=== PATIENT | male | born 1960 | race Caucasian/White ===

== ENCOUNTER 2016-12-12 07:55 | Emergency (ER) | payer MEDICAID ==
[~2016-12-12] VITALS: Ht 167.6 cm; Wt 81.6 kg
[2016-12-12 08:22] VITALS: BP 117/76
== END 2016-12-12 08:40 | disposition home or self-care (01) ==
LOC: ER 07:55
DX: J40 Bronchitis, not specified as acute or chronic (principal); R06.2 Wheezing; I48.91 Unspecified atrial fibrillation; E78.5 Hyperlipidemia, unspecified; I50.9 Heart failure, unspecified; F17.210 Nicotine dependence, cigarettes, uncomplicated

== ENCOUNTER 2017-02-02 07:14 | Emergency (ER) | payer MEDICAID ==
[~2017-02-02] VITALS: Ht 167.6 cm; Wt 81.2 kg
[2017-02-02 08:19] LABS: Urine RBC None Seen /hpf (0 - 3)
[2017-02-02 08:35] LABS: Basophils # (auto) 0 uL; Basophils % (auto) 0.3 % (0.0-2.0); Eosinophils # (auto) 0.2 uL; Eosinophils % (auto) 3.1 % (0.0-7.0); Hematocrit 40.2 % (41.0-53.0); Hemoglobin 13.8 g/dL (13.5-17.5); Lymphocytes # (auto) 0.9 uL; Lymphocytes % (auto) 17.1 % (10.0-50.0); Mean Corpuscular Hemoglobin 30.4 pg (28.0-32.0); Mean Corpuscular Hgb Conc. 34.4 g/dL (32.0-36.0); Mean Corpuscular Volume 88.3 fL (80.0-100.0); Mean Platelet Volume 8.1 fL (7.4-10.4); Monocytes # (auto) 0.5 uL; Neutrophils # (auto) 3.5 uL; Neutrophils % (auto) 69.5 % (37.0-80.0); Platelet Count (auto) 213 10^3/uL (140-450); Red Cell Distribution Width 14.2 % (11.6-16.0)
[2017-02-02 08:40] LABS: Urine Bilirubin Negative (Negative); Urine Blood Negative /uL (Negative); Urine Color Yellow (Yellow); Urine Glucose Normal (Normal); Urine Hyaline Cast FEW /lpf (0 - 2); Urine Ketone Negative (Negative); Urine Nitrite Negative (Negative); Urine Squamous Epithelial Cell FEW /hpf (<5); Urine Urobilinogen Normal (Negative); Urine pH 5.5 (5.0-8.0)
[2017-02-02 09:01] LABS: Albumin 3.7 g/dL (3.4-5.0); Alkaline Phosphatase 81 U/L (45-117); Anion Gap 7 (5-15); Aspartate Aminotransferase 33 U/L (15-37); BUN/Creatinine Ratio 22.5; Bilirubin, Total 0.5 mg/dL (0.2-1.0); Blood Urea Nitrogen 20 mg/dL (7-18); Calcium 8.8 mg/dL (8.5-10.1); Carbon Dioxide 26 mmol/L (21-32); Chloride 104 mmol/L (98-107); GFR African American 115 mL/min; GFR Non-African American 95 mL/min; Glucose 90 mg/dL (74-106); Magnesium 2.2 mg/dL (1.6-2.6); Potassium 3.7 mmol/L (3.5-5.1); Sodium 137 mmol/L (136-145); Total Protein 7.9 g/dL (6.4-8.2)
[2017-02-02] MEDS ORDERED: IPRATROPIUM BROM 0.5 MG/2.5ML INH SOL NEB ONE (09:15)
[2017-02-02] MEDS ORDERED: AZITHROMYCIN 500MG/D5W 250ML 250 ML IV ONE (09:15)
[2017-02-02] MEDS ORDERED: ALBUTEROL SULF 2.5 MG/0.5ML(0.5%) NEB SOLN NEB ONE (09:15)
[2017-02-02] MEDS ORDERED: DEXAMETHASONE SOD PHOS 4 MG/1ML SDV INJ IV ONE (09:15)
[2017-02-02 09:57] VITALS: BP 122/75
== END 2017-02-02 11:34 | disposition home or self-care (01) ==
LOC: ER 07:14
DX: J45.901 Unspecified asthma with (acute) exacerbation (principal); E78.5 Hyperlipidemia, unspecified; F17.210 Nicotine dependence, cigarettes, uncomplicated; Z90.49 Acquired absence of other specified parts of digestive tract
CPT/HCPCS: 36415; 71020; 80053; 81001; 83735; 84484; 85025; 93005; 94640; 94761; 96365; 96366; 96375; 99285; J0456; J1100

== ENCOUNTER 2017-03-24 05:42 | Emergency (ER) | payer MEDICAID ==
[~2017-03-24] VITALS: Ht 167.6 cm; Wt 83.9 kg
[2017-03-24 07:45] LABS: Urine RBC None Seen /hpf (0 - 3)
[2017-03-24 07:52] LABS: Basophils # (auto) 0 uL; Basophils % (auto) 0.4 % (0.0-2.0); CONDITION Y; Eosinophils # (auto) 0.2 uL; Eosinophils % (auto) 2.7 % (0.0-7.0); Hematocrit 40.1 % (41.0-53.0); Hemoglobin 13.9 g/dL (13.5-17.5); Lymphocytes # (auto) 1.7 uL; Lymphocytes % (auto) 26.1 % (10.0-50.0); Mean Corpuscular Hemoglobin 30.6 pg (28.0-32.0); Mean Corpuscular Hgb Conc. 34.6 g/dL (32.0-36.0); Mean Corpuscular Volume 88.7 fL (80.0-100.0); Mean Platelet Volume 8.1 fL (7.4-10.4); Monocytes # (auto) 0.5 uL; Monocytes % (auto) 8.2 % (0.0-12.0); Neutrophils # (auto) 4.1 uL; Neutrophils % (auto) 62.6 % (37.0-80.0); Platelet Count (auto) 232 10^3/uL (140-450); White Blood Cell 6.5 10^3/uL (4.4-10.8)
[2017-03-24 07:58] LABS: Urine Bilirubin Negative (Negative); Urine Blood Negative /uL (Negative); Urine Color Yellow (Yellow); Urine Glucose Normal (Normal); Urine Ketone Negative (Negative); Urine Nitrite Negative (Negative); Urine Squamous Epithelial Cell FEW /hpf (<5); Urine Urobilinogen Normal (Negative)
[2017-03-24 08:07] LABS: Albumin 3.8 g/dL (3.4-5.0); Amylase 42 U/L (25-115); Anion Gap 8 (5-15); Aspartate Aminotransferase 20 U/L (15-37); BUN/Creatinine Ratio 22.6; Blood Urea Nitrogen 19 mg/dL (7-18); Calcium 8.5 mg/dL (8.5-10.1); Carbon Dioxide 24 mmol/L (21-32); Chloride 106 mmol/L (98-107); GFR African American 122 mL/min; GFR Non-African American 101 mL/min; Glucose 89 mg/dL (74-106); Sodium 138 mmol/L (136-145)
[2017-03-24 08:10] LABS: INR 0.95 (0.9-1.15); Partial Thromboplastin Time 26.6 sec (22.64-33.71); Prothrombin Time 10.4 sec (9.37-12.3)
[2017-03-24 08:11] LABS: Alkaline Phosphatase 63 U/L (45-117); Bilirubin, Total 0.5 mg/dL (0.2-1.0); Total Protein 7.5 g/dL (6.4-8.2)
[2017-03-24] MEDS ORDERED: SODIUM CHLORIDE 0.9% 500 ML IVB ONE (09:15)
[2017-03-24] MEDS ORDERED: KETOROLAC TROMETH 30 MG/ML 1ML VIAL IV ONE (09:15)
[2017-03-24 11:03] VITALS: BP 132/87
== END 2017-03-24 11:13 | disposition home or self-care (01) ==
LOC: EDUNIT# 05:42 → ER 05:42
DX: S39.011A Strain of muscle, fascia and tendon of abdomen, initial encounter (principal); Z90.49 Acquired absence of other specified parts of digestive tract; F17.210 Nicotine dependence, cigarettes, uncomplicated; E78.5 Hyperlipidemia, unspecified; X58.XXXA Exposure to other specified factors, initial encounter; Y93.89 Activity, other specified; Y92.89 Other specified places as the place of occurrence of the external cause; Y99.8 Other external cause status
CPT/HCPCS: 36415; 74176; 80053; 81001; 82150; 83690; 84484; 85025; 85610; 85730; 94761; 96361; 96374; 99285; J1885; J7030

== ENCOUNTER 2017-07-13 00:52 | Emergency (ER) | payer MEDICAID ==
[~2017-07-13] VITALS: Ht 167.6 cm; Wt 81.6 kg
[2017-07-13 01:02] VITALS: BP 134/76
[2017-07-13 01:14] LABS: Basophils # (auto) 0 uL; Basophils % (auto) 0.6 % (0.0-2.0); Eosinophils # (auto) 0.2 uL; Eosinophils % (auto) 3.2 % (0.0-7.0); Hematocrit 39.2 % (41.0-53.0); Hemoglobin 13.4 g/dL (13.5-17.5); Lymphocytes # (auto) 1.7 uL; Lymphocytes % (auto) 28.6 % (10.0-50.0); Mean Corpuscular Hemoglobin 30.9 pg (28.0-32.0); Mean Corpuscular Volume 90.8 fL (80.0-100.0); Monocytes # (auto) 0.7 uL; Monocytes % (auto) 12.6 % (0.0-12.0); Neutrophils # (auto) 3.2 uL; Nucleated Red Blood Cells % 0.1 %; Platelet Count (auto) 183 10^3/uL (140-450); Red Blood Cells 4.32 10^6/uL (4.5-5.90); Red Cell Distribution Width 13.4 % (11.8-14.3); White Blood Cell 5.9 10^3/uL (4.4-10.8)
[2017-07-13 01:30] LABS: BUN/Creatinine Ratio 18.5; Calcium 8.9 mg/dL (8.5-10.1)
[2017-07-13] MEDS ORDERED: IPRATROPIUM BROM 0.5 MG/2.5ML INH SOL NEB ONE (03:15)
[2017-07-13] MEDS ORDERED: methylPREDNISolone SOD SUCC 125 MG/2 ML VL IM ONE (03:15)
[2017-07-13] MEDS ORDERED: ALBUTEROL SULF 2.5 MG/0.5ML(0.5%) NEB SOLN NEB ONE (03:15)
== END 2017-07-13 03:47 | disposition home or self-care (01) ==
LOC: ER 01:04
DX: J40 Bronchitis, not specified as acute or chronic (principal); J44.9 Chronic obstructive pulmonary disease, unspecified; F17.210 Nicotine dependence, cigarettes, uncomplicated; E78.5 Hyperlipidemia, unspecified; Z90.49 Acquired absence of other specified parts of digestive tract
CPT/HCPCS: 36415; 71020; 80048; 85025; 94640; 96372; 99285; J2930

== ENCOUNTER 2017-09-13 18:29 | Inpatient (IN) | payer MEDICAID ==
[~2017-09-13] VITALS: Ht 172.7 cm; Wt 79.5 kg
[2017-09-13 19:28] LABS: Basophils # (auto) 0 uL; Basophils % (auto) 0.5 % (0.0-2.0); Eosinophils # (auto) 0 uL; Eosinophils % (auto) 0.2 % (0.0-7.0); Hematocrit 39.7 % (41.0-53.0); Hemoglobin 13.5 g/dL (13.5-17.5); Lymphocytes # (auto) 0.8 uL; Lymphocytes % (auto) 16.1 % (10.0-50.0); Mean Corpuscular Hemoglobin 31.1 pg (28.0-32.0); Mean Corpuscular Hgb Conc. 33.9 g/dL (32.0-36.0); Mean Corpuscular Volume 91.6 fL (80.0-100.0); Monocytes # (auto) 0.7 uL; Monocytes % (auto) 14.1 % (0.0-12.0); Neutrophils # (auto) 3.2 uL; Neutrophils % (auto) 69.1 % (37.0-80.0); Nucleated Red Blood Cells % 0.1 %; Platelet Count (auto) 170 10^3/uL (140-450); Red Blood Cells 4.34 10^6/uL (4.5-5.90); Red Cell Distribution Width 14.2 % (11.8-14.3); White Blood Cell 4.7 10^3/uL (4.4-10.8)
[2017-09-13 20:15] LABS: Potassium 3.7 mmol/L (3.5-5.1)
[2017-09-13 20:16] LABS: Albumin 3.7 g/dL (3.4-5.0); BUN/Creatinine Ratio 14.9; Bilirubin, Total 0.4 mg/dL (0.2-1.0); Calcium 8.1 mg/dL (8.5-10.1); Magnesium 2.2 mg/dL (1.6-2.6); Total Protein 6.9 g/dL (6.4-8.2)
[2017-09-14] MEDS ORDERED: SODIUM CHLORIDE 0.9% 500 ML IV ONE ×2 (01:00→02:00)
[2017-09-14] MEDS ORDERED: ACETAMINOPHEN 325 MG TAB PO ONE ×2 (01:41→01:45)
[2017-09-14] MEDS ORDERED: SODIUM CHLORIDE 0.9% 1,000 ML IV ONE (03:00)
[2017-09-14 04:55] LABS: INR 0.95 (0.9-1.15); Partial Thromboplastin Time 27.1 sec (22.64-33.71); Prothrombin Time 10.3 sec (9.37-12.3)
[2017-09-14] MEDS ORDERED: ALBU1SYP PO (05:27)
[2017-09-14] MEDS ORDERED: LISI10TA6 PO (05:27)
[2017-09-14] MEDS ORDERED: PROM1SYP4 PO (05:28)
[2017-09-14] MEDS ORDERED: FURO40TA PO (05:29)
[2017-09-14] MEDS ORDERED: CARV25TA55 PO (05:29)
[2017-09-14] MEDS ORDERED: ATO40T PO (05:30)
[2017-09-14] MEDS ORDERED: ONDANSETRON HCL 4 MG/2 ML VIAL IV PRN (06:00)
[2017-09-14] MEDS ORDERED: ACETAMINOPHEN 325 MG TAB PO PRN (06:00)
[2017-09-14] MEDS ORDERED: methylPREDNISolone SOD SUCC 125 MG/2 ML VL IV ONE (06:00)
[2017-09-14] MEDS ORDERED: NITROGLYCERIN 0.4 MG SL TAB SL PRN (06:00)
[2017-09-14] MEDS ORDERED: MORPHINE SULF INJ 2 MG/ML SYRINGE 1ML IV PRN (06:00)
[2017-09-14] MEDS: SODIUM CHLORIDE 0.9% 1,000 ML IV SCH ×2 (06:01→19:20)
[2017-09-14] MEDS ORDERED: LEVOFLOXACIN 500MG 100 ML IV ONE (06:06)
[2017-09-14] MEDS: LEVOFLOXACIN 500MG 100 ML IV SCH ×2 (06:09→10:18)
[2017-09-14 06:57] VITALS: BP 104/47
[2017-09-14] MEDS: ENOXAPARIN SOD 40 MG/0.4 ML SYRINGE SC SCH (10:18)
[2017-09-14 11:07] LABS: Urine Bacteria NONE SEEN /hpf (None Seen); Urine Blood Negative /uL (Negative); Urine Specific Gravity 1.016 (1.001-1.035); Urine WBC <1 /hpf (0 - 3)
[2017-09-14 13:00] VITALS: BP 120/74
[2017-09-14 13:11] LABS: BUN/Creatinine Ratio 26.5; Potassium 3.8 mmol/L (3.5-5.1)
[2017-09-14 13:12] LABS: Albumin 3.3 g/dL (3.4-5.0); Bilirubin, Total 0.2 mg/dL (0.2-1.0); Calcium 8.1 mg/dL (8.5-10.1); Total Protein 6.4 g/dL (6.4-8.2)
[2017-09-14] MEDS: HYDROcodone-ACET 5/325MG TAB PO PRN (15:41)
[2017-09-14 15:45] VITALS: BP 124/75
[2017-09-14 19:55] VITALS: BP 115/71
[2017-09-14] MEDS: ATORVASTATIN 20 MG TAB PO SCH (21:49)
[2017-09-15] MEDS: ALBUTEROL SULF 2.5 MG/0.5ML(0.5%) NEB SOLN NEB PRN ×2 (00:01→07:20)
[2017-09-15] MEDS: SODIUM CHLORIDE 0.9% 1,000 ML IV SCH ×2 (02:39→22:00)
[2017-09-15 06:03] LABS: Basophils # (auto) 0 uL; Basophils % (auto) 0.2 % (0.0-2.0); Eosinophils # (auto) 0 uL; Hematocrit 35.7 % (41.0-53.0); Hemoglobin 12.1 g/dL (13.5-17.5); Lymphocytes # (auto) 1.3 uL; Lymphocytes % (auto) 13.8 % (10.0-50.0); Mean Corpuscular Hemoglobin 31.3 pg (28.0-32.0); Mean Corpuscular Volume 92.1 fL (80.0-100.0); Monocytes # (auto) 0.6 uL; Monocytes % (auto) 6.5 % (0.0-12.0); Neutrophils # (auto) 7.2 uL; Neutrophils % (auto) 79.5 % (37.0-80.0); Platelet Count (auto) 148 10^3/uL (140-450); Red Blood Cells 3.88 10^6/uL (4.5-5.90); White Blood Cell 9.1 10^3/uL (4.4-10.8)
[2017-09-15 06:10] LABS: Albumin 3.1 g/dL (3.4-5.0); Calcium 8.1 mg/dL (8.5-10.1); Potassium 3.5 mmol/L (3.5-5.1)
[2017-09-15 06:13] LABS: BUN/Creatinine Ratio 22.1
[2017-09-15 06:16] LABS: Bilirubin, Total 0.2 mg/dL (0.2-1.0); Total Protein 6.1 g/dL (6.4-8.2)
[2017-09-15] MEDS ORDERED: POTASSIUM CHL 20 Meq TABLET PO ONE (07:30)
[2017-09-15] MEDS: ENOXAPARIN SOD 40 MG/0.4 ML SYRINGE SC SCH (09:24)
[2017-09-15] MEDS: LEVOFLOXACIN 500MG 100 ML IV SCH (09:24)
[2017-09-15 11:52] VITALS: BP 114/66
[2017-09-15] MEDS: methylPREDNISolone SOD SUCC 40 MG/ML VL IV SCH ×3 (11:52→23:46)
[2017-09-15 17:00] VITALS: BP 122/76
[2017-09-15] MEDS: ATORVASTATIN 20 MG TAB PO SCH (21:41)
[2017-09-15] MEDS: TEMAZEPAM 15 MG CAP PO PRN (21:44)
[2017-09-15 22:00] VITALS: BP 118/73
[2017-09-16 05:00] VITALS: BP 123/76
[2017-09-16] MEDS: methylPREDNISolone SOD SUCC 40 MG/ML VL IV SCH ×3 (05:51→18:01)
[2017-09-16] MEDS: ALBUTEROL SULF 2.5 MG/0.5ML(0.5%) NEB SOLN NEB PRN ×2 (07:44→18:21)
[2017-09-16 09:00] VITALS: BP 127/80
[2017-09-16] MEDS: LEVOFLOXACIN 500 MG TAB PO SCH (10:25)
[2017-09-16] MEDS: ENOXAPARIN SOD 40 MG/0.4 ML SYRINGE SC SCH (10:25)
[2017-09-16] MEDS: HYDROcodone-ACET 5/325MG TAB PO PRN ×3 (10:41→22:26)
[2017-09-16] MEDS: SODIUM CHLORIDE 0.9% 1,000 ML IV SCH (11:20)
[2017-09-16 13:00] VITALS: BP 124/77
[2017-09-16 17:00] VITALS: BP 131/83
[2017-09-16] MEDS: guaiFENesin-DM 100/10mg/5ml SYR PO PRN (18:00)
[2017-09-16] MEDS: TEMAZEPAM 15 MG CAP PO PRN (21:48)
[2017-09-16] MEDS: ATORVASTATIN 20 MG TAB PO SCH (21:48)
[2017-09-16 22:00] VITALS: BP 140/70
[2017-09-17] VITALS (7 sets, daily range): BP systolic 113–140; BP diastolic 67–82
[2017-09-17] MEDS: methylPREDNISolone SOD SUCC 40 MG/ML VL IV SCH ×3 (00:16→11:02)
[2017-09-17] MEDS: SODIUM CHLORIDE 0.9% 1,000 ML IV SCH ×2 (00:40→13:58)
[2017-09-17] MEDS: ALBUTEROL SULF 2.5 MG/0.5ML(0.5%) NEB SOLN NEB PRN (01:51)
[2017-09-17] MEDS: guaiFENesin-DM 100/10mg/5ml SYR PO PRN (06:25)
[2017-09-17] MEDS: ENOXAPARIN SOD 40 MG/0.4 ML SYRINGE SC SCH (10:53)
[2017-09-17] MEDS: LEVOFLOXACIN 500 MG TAB PO SCH (10:53)
[2017-09-17] MEDS: HYDROcodone-ACET 5/325MG TAB PO PRN (11:02)
[2017-09-17] MEDS ORDERED: LEVO500T21 PO (12:35)
[2017-09-17] MEDS ORDERED: PRE5T PO (12:35)
== END 2017-09-17 14:45 | disposition home or self-care (01) | DRG 139 ==
LOC: ER 18:29 → EDBD 18:29 → TELE 18:30 → DOU IN ICU 09-14 12:40 → EAST 09-15 16:01
PROVIDERS: ADMIT Nurse Practitioner; ATTEND Internal Medicine
DX: J18.9 Pneumonia, unspecified organism (principal); N17.0 Acute kidney failure with tubular necrosis; I13.0 Hypertensive heart and chronic kidney disease with heart failure and stage 1 through stage 4 chronic kidney disease, or unspecified chronic kidney disease; E11.22 Type 2 diabetes mellitus with diabetic chronic kidney disease; I50.9 Heart failure, unspecified; J44.0 Chronic obstructive pulmonary disease with (acute) lower respiratory infection; N18.3 Chronic kidney disease, stage 3 (moderate); F17.210 Nicotine dependence, cigarettes, uncomplicated; E78.5 Hyperlipidemia, unspecified; E87.6 Hypokalemia; R09.1 Pleurisy; Z82.49 Family history of ischemic heart disease and other diseases of the circulatory system; Z83.3 Family history of diabetes mellitus; Z82.3 Family history of stroke; Z88.0 Allergy status to penicillin; Z90.49 Acquired absence of other specified parts of digestive tract
CPT/HCPCS: 36415; 71046; 80053; 81001; 83605; 83735; 83880; 84484; 85025; 85610; 85730; 87040; 87077; 87081; 87186; 87400; 93005; 94640; 96361; 96365; 96375; J1956

== ENCOUNTER 2017-12-26 18:35 | Emergency (ER) | payer MEDICAID ==
[~2017-12-26] VITALS: Ht 167.6 cm; Wt 81.6 kg
[~2017-12-26 18:35] MED LIST: ALBU1SYP PO; ATO40T PO; CARV25TA55 PO; FURO40TA PO; LEVO500T21 PO; LISI10TA6 PO; PRE5T PO; PROM1SYP4 PO
[2017-12-27] MEDS ORDERED: HYDROcodone-ACET 7.5/325MG TAB PO ONE (02:00)
[2017-12-27] MEDS ORDERED: KETOROLAC TROMETH 30 MG/ML 1ML VIAL IV ONE (02:00)
[2017-12-27 04:07] VITALS: BP 120/72
== END 2017-12-27 04:11 | disposition home or self-care (01) ==
LOC: ER 18:35
DX: M77.11 Lateral epicondylitis, right elbow (principal); I11.0 Hypertensive heart disease with heart failure; I50.9 Heart failure, unspecified; E78.5 Hyperlipidemia, unspecified; J45.909 Unspecified asthma, uncomplicated; F17.210 Nicotine dependence, cigarettes, uncomplicated; Z90.49 Acquired absence of other specified parts of digestive tract; Z88.0 Allergy status to penicillin
CPT/HCPCS: 73080; 93971; 96374; 99284; J1885

== ENCOUNTER 2018-08-14 03:21 | Emergency (ER) | payer MEDICAID ==
[~2018-08-14] VITALS: Ht 167.6 cm; Wt 77.1 kg
[~2018-08-14 03:21] MED LIST changes: +LEVO750T2 PO; +PANT40TA2 PO
[2018-08-14 03:35] VITALS: BP 121/73
[2018-08-14] MEDS ORDERED: ACETAMINOPHEN 325 MG TAB PO ONE ×2 (03:38→03:45)
[2018-08-14] MEDS ORDERED: IPRATROPIUM BROM 0.5 MG/2.5ML INH SOL NEB ONE (04:45)
[2018-08-14] MEDS ORDERED: ALBUTEROL SULF 2.5 MG/0.5ML(0.5%) NEB SOLN NEB ONE (04:45)
== END 2018-08-14 06:10 | disposition home or self-care (01) ==
LOC: ER 03:25
DX: J40 Bronchitis, not specified as acute or chronic (principal); J45.909 Unspecified asthma, uncomplicated; I50.9 Heart failure, unspecified; I25.2 Old myocardial infarction; E78.00 Pure hypercholesterolemia, unspecified; F17.210 Nicotine dependence, cigarettes, uncomplicated; Z90.49 Acquired absence of other specified parts of digestive tract
CPT/HCPCS: 71045; 94640; 99283; J7611; J7644

== ENCOUNTER 2018-08-16 05:04 | Emergency (ER) | payer MEDICAID ==
[~2018-08-16] VITALS: Ht 167.6 cm; Wt 77.1 kg
[2018-08-16 06:30] VITALS: BP 126/77
[2018-08-16] MEDS ORDERED: ALBUTEROL SULF 2.5 MG/0.5ML(0.5%) NEB SOLN NEB ONE (06:45)
[2018-08-16] MEDS ORDERED: IPRATROPIUM BROM 0.5 MG/2.5ML INH SOL NEB ONE (06:45)
== END 2018-08-16 07:26 | disposition home or self-care (01) ==
LOC: ER 05:05
DX: J40 Bronchitis, not specified as acute or chronic (principal); F17.210 Nicotine dependence, cigarettes, uncomplicated; I50.9 Heart failure, unspecified; E78.5 Hyperlipidemia, unspecified; Z90.49 Acquired absence of other specified parts of digestive tract
CPT/HCPCS: 71046; 94640; 99283; J7611; J7644

== ENCOUNTER 2020-06-22 06:29 | Emergency (ER) | payer MEDICAID, OTHER ==
[~2020-06-22] VITALS: Ht 165.1 cm; Wt 81.6 kg
[~2020-06-22 06:29] MED LIST changes: -ALBU1SYP PO; +ALBU2SYP10 PO; +FURO1TAB31 PO; -FURO40TA PO; -LEVO750T2 PO; +LEVO750T8 PO; +LISI-648 PO; -LISI10TA6 PO; -PROM1SYP4 PO; +PROM2SYP2 PO
[2020-06-22] MEDS ORDERED: FUROSEMIDE 40 MG/4 ML VIAL IV ONE (08:15)
[2020-06-22] MEDS ORDERED: DexAMETHasone SOD PHOS 10MG/1ML VIAL INJ IV ONE (08:15)
[2020-06-22] MEDS ORDERED: HYDROmorphone HCL 2 MG/ML VL IV ONE (08:15)
[2020-06-22] MEDS ORDERED: SODIUM CHLORIDE 0.9% 1,000 ML IV ONE (08:15)
[2020-06-22] MEDS ORDERED: METOCLOPRAMIDE HCL 5MG/ml INJ 2ml VIAL IV ONE (08:15)
[2020-06-22 08:35] LABS: Urine Bacteria NONE SEEN /hpf (None Seen); Urine Blood Negative /uL (Negative); Urine Hyaline Cast FEW /lpf (0 - 2); Urine Specific Gravity 1.009 (1.001-1.035); Urine WBC <1 /hpf (0 - 3)
[2020-06-22 08:49] LABS: Basophils # (auto) 0 10 ^3/uL (0-0.2); Eosinophils # (auto) 0 10 ^3/uL (0-0.8); Hematocrit 37.7 % (41.0-53.0); Hemoglobin 12.4 g/dL (13.5-17.5); Lymphocytes # (auto) 0.5 10 ^3/uL (0.4-5.4); Lymphocytes % (auto) 3.8 % (10.0-50.0); Mean Corpuscular Hemoglobin 30.6 pg (28.0-32.0); Mean Corpuscular Hgb Conc. 32.8 g/dL (32.0-36.0); Mean Corpuscular Volume 93.2 fL (80.0-100.0); Monocytes # (auto) 0.3 10 ^3/uL (0-1.3); Monocytes % (auto) 1.9 % (0.0-12.0); Neutrophils # (auto) 12.8 10 ^3/uL (1.6-8.6); Neutrophils % (auto) 94.3 % (37.0-80.0); Nucleated Red Blood Cells % 0.1 %; Platelet Count (auto) 231 10^3/uL (140-450); Red Blood Cells 4.04 10^6/uL (4.5-5.90); Red Cell Distribution Width 13.7 % (11.8-14.3); White Blood Cell 13.5 10^3/uL (4.4-10.8)
[2020-06-22 09:01] LABS: Albumin 3.9 g/dL (3.4-5.0); Calcium 8.8 mg/dL (8.5-10.1); Magnesium 2.4 mg/dL (1.6-2.6); Potassium 4.4 mmol/L (3.5-5.1)
[2020-06-22 09:07] LABS: BUN/Creatinine Ratio 18.6; Bilirubin, Total 0.8 mg/dL (0.2-1.0); Total Protein 7.2 g/dL (6.4-8.2)
[2020-06-22] MEDS ORDERED: SPIRONOLACTONE 25 MG TAB PO ONE (10:15)
[2020-06-22 15:00] VITALS: BP 115/73
== END 2020-06-22 17:55 | disposition home or self-care (01) ==
LOC: ER 06:29
DX: M47.812 Spondylosis without myelopathy or radiculopathy, cervical region (principal); I11.0 Hypertensive heart disease with heart failure; I50.9 Heart failure, unspecified; E78.5 Hyperlipidemia, unspecified; Z87.891 Personal history of nicotine dependence; Z90.49 Acquired absence of other specified parts of digestive tract
CPT/HCPCS: 36415; 71046; 72125; 80053; 81001; 83735; 83880; 84484; 85025; 93005; 96361; 96374; 96375; 99285; J1100; J1170; J1940; J2765

== ENCOUNTER 2020-07-07 08:55 | Emergency (ER) | payer OTHER ==
[~2020-07-07] VITALS: Ht 167.6 cm; Wt 81.6 kg
[2020-07-07] MEDS ORDERED: FUROSEMIDE 40 MG/4 ML VIAL IV ONE (10:00)
[2020-07-07 11:08] VITALS: BP 116/84
[2020-07-07] MEDS ORDERED: HYDROcodone-ACET 10/325MG TAB PO ONE (11:30)
[2020-07-07] MEDS ORDERED: FUROSEMIDE 20 MG TAB PO ONE (13:15)
== END 2020-07-07 13:35 | disposition left against medical advice (07) ==
LOC: ER 08:55
DX: M54.12 Radiculopathy, cervical region (principal); I50.9 Heart failure, unspecified; E78.5 Hyperlipidemia, unspecified; Z90.49 Acquired absence of other specified parts of digestive tract; Z87.891 Personal history of nicotine dependence; Z88.0 Allergy status to penicillin
CPT/HCPCS: 71045; 72125

== ENCOUNTER 2022-12-31 01:02 | Inpatient (IN) | payer BC, OTHER ==
[~2022-12-31] VITALS: Ht 172.7 cm; Wt 81.5 kg
[2022-12-31] VITALS (60 sets, daily range): BP systolic 79–133; BP diastolic 30–70
[~2022-12-31 01:02] MED LIST changes: -LEVO500T21 PO; +LEVO500T31 PO; -LISI-648 PO; +LISI-716 PO
[2022-12-31] MEDS ORDERED: LORazepam 2MG/ML-1ML VIAL ONE (01:08)
[2022-12-31] MEDS ORDERED: LORazepam 2MG/ML-1ML VIAL IM ONE (01:15)
[2022-12-31] MEDS ORDERED: LORazepam 2MG/ML-1ML VIAL IV ONE ×2 (01:45→11:15)
[2022-12-31] MEDS ORDERED: SODIUM CHLORIDE 0.9% 1,000 ML IV ONE ×3 (01:45→10:45)
[2022-12-31] MEDS ORDERED: THIAMINE 100mg/ml INJ (200mg/2ml VIAL) IV ONE ×2 (01:45→19:15)
[2022-12-31 01:54] LABS: Eosinophils # (auto) 0 10 ^3/uL (0-0.8); Hematocrit 37.8 % (41.0-53.0); Hemoglobin 13.1 g/dL (13.5-17.5); Monocytes # (auto) 0.3 10 ^3/uL (0-1.3); Neutrophils # (auto) 5.7 10 ^3/uL (1.6-8.6); Nucleated Red Blood Cells % 0.1 %
[2022-12-31 01:56] LABS: Basophils # (auto) 0 10 ^3/uL (0-0.2); Basophils % (auto) 0.2 % (0.0-2.0); Lymphocytes # (auto) 0.5 10 ^3/uL (0.4-5.4); Lymphocytes % (auto) 7.7 % (10.0-50.0); Mean Corpuscular Hemoglobin 32.1 pg (28.0-32.0); Mean Corpuscular Hgb Conc. 34.7 g/dL (32.0-36.0); Mean Corpuscular Volume 92.6 fL (80.0-100.0); Monocytes % (auto) 4.4 % (0.0-12.0); Neutrophils % (auto) 87.7 % (37.0-80.0); Red Blood Cells 4.09 10^6/uL (4.5-5.90); Red Cell Distribution Width 13.4 % (11.8-14.3); White Blood Cell 6.5 10^3/uL (4.4-10.8)
[2022-12-31 02:06] LABS: BUN/Creatinine Ratio 12.7 (10.0-20.0); Potassium 3.6 mmol/L (3.5-5.1)
[2022-12-31 02:09] LABS: Bilirubin, Total 1.4 mg/dL (0.2-1.0); Total Protein 7.3 g/dL (6.4-8.2)
[2022-12-31 03:05] LABS: Lactic Acid w/Reflex 2.7 mmol/L (0.4-2.0)
[2022-12-31 04:10] LABS: Urine Bacteria FEW /hpf (None Seen); Urine Blood 1+ /uL (Negative); Urine Budding Yeast FEW /hpf (None Seen); Urine WBC 12 /hpf (0 - 3)
[2022-12-31 04:14] LABS: Amphetamine Screen, Urine NEGATIVE (NEGATIVE); Barbiturate Scree,Urine NEGATIVE (NEGATIVE); Benzodiazephine Screen, Urine NEGATIVE (NEGATIVE); Cannabinoid Screen, Urine NEGATIVE (NEGATIVE); Cocaine Screen, Urine NEGATIVE (NEGATIVE); Opiate Scree,Urine NEGATIVE (NEGATIVE); Phencyclidine Screen, Urine NEGATIVE (NEGATIVE)
[2022-12-31] MEDS: NOREPINEPHRINE 8 MG/250ML KIT 250 ML IV SCH ×2 (04:25→20:45)
[2022-12-31] MEDS ORDERED: DOBUTamine 1000MCG/ML 250 ML IV ONE (04:30)
[2022-12-31] MEDS ORDERED: DOPamine 1600MCG/ML D5W 250 ML IV ONE (04:37)
[2022-12-31] MEDS ORDERED: VANCOMYCIN PER PHARMACY 0 MG IV SCH (05:30)
[2022-12-31] MEDS ORDERED: HYDROcodone-ACET 5/325MG TAB PO PRN (05:30)
[2022-12-31] MEDS ORDERED: IBUPROFEN 600 MG TAB PO PRN (05:30)
[2022-12-31] MEDS ORDERED: DOCUSATE SOD 100 MG CAP PO PRN (05:30)
[2022-12-31] MEDS ORDERED: ONDANSETRON HCL 4 MG/2 ML VIAL IV PRN (05:30)
[2022-12-31] MEDS: SODIUM CHLOR 0.9% PF (SALINE LOCK) 10ML VIAL/SYR IV SCH ×3 (06:07→22:00)
[2022-12-31] MEDS: MIDODRINE HCL 10 MG TAB PO SCH ×3 (06:12→18:01)
[2022-12-31 06:13] LABS: Hemoglobin 10.4 g/dL (13.5-17.5); White Blood Cell 5.7 10^3/uL (4.4-10.8)
[2022-12-31 06:18] LABS: Hematocrit 29.7 % (41.0-53.0); Mean Corpuscular Hemoglobin 32.1 pg (28.0-32.0); Mean Corpuscular Volume 91.7 fL (80.0-100.0); Red Blood Cells 3.24 10^6/uL (4.5-5.90)
[2022-12-31 06:45] LABS: Basophils % (manual) 0 (0.0-2.0); Blast Cells 0; Eosinophils % (manual) 0 (0-7); Metamyelocytes % 0; Myelocytes % 0; Promyelocytes % 0; Reactive Lymphocytes 0
[2022-12-31] MEDS ORDERED: MORPHINE SULFATE INJ 2 MG/ml SYRG IV PRN (06:45)
[2022-12-31] MEDS ORDERED: NITROGLYCERIN 0.4 MG SL TAB SL PRN (06:45)
[2022-12-31 06:48] LABS: Albumin 2.3 g/dL (3.4-5.0); BUN/Creatinine Ratio 14.2 (10.0-20.0); Bilirubin, Total 1.1 mg/dL (0.2-1.0); Calcium 7.5 mg/dL (8.5-10.1); Total Protein 5.4 g/dL (6.4-8.2)
[2022-12-31] MEDS ORDERED: VANCOMYCIN 1GM/250ML 250 ML IV ONE (07:00)
[2022-12-31 07:58] LABS: Band Neutrophils % (manual) 13; Lymphocytes % (manual) 14 (10.0-50.0); Monocytes % (manual) 3 (0-12)
[2022-12-31] MEDS ORDERED: B-COMPLEX W/ C & FOLIC ACID(NEPHROVITE TAB) PO SCH (10:00)
[2022-12-31] MEDS ORDERED: THIAMINE 100mg/ml INJ (200mg/2ml VIAL) IV SCH (10:00)
[2022-12-31] MEDS ORDERED: FUROSEMIDE 20 MG/2 ML VIAL IV SCH (10:00)
[2022-12-31] MEDS: CARVEDILOL 3.125 MG TAB PO SCH ×2 (10:00→22:00)
[2022-12-31] MEDS: FAMOTIDINE (10MG/ML) 2ML VL IV SCH ×2 (10:56→22:48)
[2022-12-31] MEDS: POTASSIUM CHL 20MEQ/100ML 100 ML IV SCH ×2 (10:57→13:57)
[2022-12-31] MEDS ORDERED: SODIUM CHLORIDE 0.9% 1,000 ML IV SCH (11:00)
[2022-12-31] MEDS ORDERED: LORazepam 2MG/ML-1ML VIAL IV PRN (11:30)
[2022-12-31] MEDS: ASPirin 81 mg TAB PO SCH (11:38)
[2022-12-31] MEDS: chlordiazePOXIDE HCL 25 MG CAP PO PRN ×2 (11:38→18:01)
[2022-12-31 11:48] LABS: Magnesium 1.8 mg/dL (1.6-2.6); Phosphorus 2.3 mg/dL (2.5-4.90)
[2022-12-31 15:33] LABS: Sodium Urine < 5 mmol/L (40-220)
[2022-12-31 15:42] LABS: Creatinine, Urine 488 mg/dL (30.0-125.0); Protein, Urine 434.9 mg/dL (0.0-11.9)
[2022-12-31] MEDS: GABAPENTIN 300 MG CAP PO SCH ×2 (18:01→22:48)
[2022-12-31] MEDS ORDERED: MAGNESIUM SULFATE 1GM/100ML 100 ML IV SCH (19:15)
[2022-12-31] MEDS ORDERED: MVI in SODIUM CHLORIDE 0.9% 1,010 ML IV ONE (19:15)
[2022-12-31] MEDS: ATORVASTATIN 20 MG TAB PO SCH (22:47)
[2023-01-01] VITALS (96 sets, daily range): BP systolic 63–135; BP diastolic 36–108
[2023-01-01] MEDS: chlordiazePOXIDE HCL 25 MG CAP PO PRN ×3 (00:27→17:55)
[2023-01-01] MEDS ORDERED: LORazepam 2MG/ML-1ML VIAL IV ONE (02:00)
[2023-01-01 04:21] LABS: Hemoglobin 11.1 g/dL (13.5-17.5); Red Blood Cells 3.49 10^6/uL (4.5-5.90); Red Cell Distribution Width 13.5 % (11.8-14.3)
[2023-01-01 04:24] LABS: Hematocrit 32.1 % (41.0-53.0); Mean Corpuscular Hemoglobin 31.8 pg (28.0-32.0); Mean Corpuscular Hgb Conc. 34.6 g/dL (32.0-36.0); Mean Corpuscular Volume 91.8 fL (80.0-100.0); White Blood Cell 8.6 10^3/uL (4.4-10.8)
[2023-01-01 04:36] LABS: Albumin 2.1 g/dL (3.4-5.0); Calcium 7.6 mg/dL (8.5-10.1); Potassium 3.4 mmol/L (3.5-5.1)
[2023-01-01 04:37] LABS: % Iron Saturation 7.6 % (20-55)
[2023-01-01 04:39] LABS: BUN/Creatinine Ratio 20.5 (10.0-20.0)
[2023-01-01 04:42] LABS: Bilirubin, Total 0.8 mg/dL (0.2-1.0); Total Protein 5.4 g/dL (6.4-8.2)
[2023-01-01 05:04] LABS: Basophils % (manual) 0 (0.0-2.0); Blast Cells 0; Eosinophils % (manual) 0 (0-7); Metamyelocytes % 0; Promyelocytes % 0; Reactive Lymphocytes 0
[2023-01-01 05:33] LABS: Ferritin 883.7 ng/mL (10-322)
[2023-01-01] MEDS: GABAPENTIN 300 MG CAP PO SCH ×2 (06:00→06:06)
[2023-01-01] MEDS: MIDODRINE HCL 10 MG TAB PO SCH ×4 (06:00→17:55)
[2023-01-01 06:01] LABS: Band Neutrophils % (manual) 31; Lymphocytes % (manual) 2 (10.0-50.0); Monocytes % (manual) 3 (0-12)
[2023-01-01 06:02] LABS: Myelocytes % 1
[2023-01-01] MEDS: SODIUM CHLOR 0.9% PF (SALINE LOCK) 10ML VIAL/SYR IV SCH ×3 (06:05→21:55)
[2023-01-01] MEDS: CARVEDILOL 3.125 MG TAB PO SCH ×2 (09:38→22:00)
[2023-01-01] MEDS: FOLIC ACID 1 MG TAB PO SCH (09:59)
[2023-01-01] MEDS: FAMOTIDINE (10MG/ML) 2ML VL IV SCH ×2 (09:59→23:10)
[2023-01-01] MEDS: ASPirin 81 mg TAB PO SCH (09:59)
[2023-01-01] MEDS: THIAMINE HCL 100 MG TAB PO SCH (09:59)
[2023-01-01] MEDS ORDERED: POTASSIUM CHL 20MEQ/100ML 100 ML IV ONE (11:45)
[2023-01-01] MEDS ORDERED: SODIUM CHLORIDE 0.9% 1,000 ML IV SCH (11:45)
[2023-01-01] MEDS ORDERED: FOLIC ACID 1 MG, MULTIPLE VITAMIN 10 ML, MAGNESIUM SULF SDV 50% 8 MEQ, THIAMINE INJ 100... INJ ONE ×5 (12:00)
[2023-01-01] MEDS: GABAPENTIN 400 MG CAP PO SCH ×2 (14:00→21:55)
[2023-01-01] MEDS ORDERED: FUROSEMIDE 40 MG/4 ML VIAL IV ONE (14:30)
[2023-01-01] MEDS ORDERED: FUROSEMIDE 40 MG/4 ML VIAL IV SCH (18:00)
[2023-01-01] MEDS: ATORVASTATIN 20 MG TAB PO SCH (21:55)
[2023-01-02] VITALS (94 sets, daily range): BP systolic 63–230; BP diastolic 22–161
[2023-01-02] MEDS: chlordiazePOXIDE HCL 25 MG CAP PO PRN ×2 (00:42→18:11)
[2023-01-02] MEDS ORDERED: LORazepam 2MG/ML-1ML VIAL IV ONE ×2 (01:45→02:10)
[2023-01-02] MEDS ORDERED: LORazepam 2MG/ML-1ML VIAL ONE (01:47)
[2023-01-02] MEDS ORDERED: ACETAMINOPHEN IV 1000 MG/100ML (10MG/ML) IV ONE (04:00)
[2023-01-02] MEDS ORDERED: VANCOMYCIN PER PHARMACY 0 MG IV SCH (04:00)
[2023-01-02] MEDS ORDERED: cefTRIAXone 1GM/50ML D5W 50 ML IV SCH (04:00)
[2023-01-02] MEDS ORDERED: ACETAMINOPHEN 325 MG TAB PO PRN (04:00)
[2023-01-02] MEDS: NOREPINEPHRINE 8 MG/250ML KIT 250 ML IV SCH ×2 (04:00→06:02)
[2023-01-02] MEDS ORDERED: VANCOMYCIN 1GM/250ML 250 ML IV ONE (05:30)
[2023-01-02] MEDS: MIDODRINE HCL 10 MG TAB PO SCH ×3 (06:00→17:38)
[2023-01-02] MEDS: GABAPENTIN 400 MG CAP PO SCH ×3 (06:00→21:42)
[2023-01-02] MEDS: SODIUM CHLOR 0.9% PF (SALINE LOCK) 10ML VIAL/SYR IV SCH ×3 (06:01→21:42)
[2023-01-02 06:50] LABS: Albumin 1.8 g/dL (3.4-5.0); Calcium 7.3 mg/dL (8.5-10.1)
[2023-01-02 06:53] LABS: BUN/Creatinine Ratio 21.5 (10.0-20.0); Bilirubin, Total 0.8 mg/dL (0.2-1.0); Total Protein 4.8 g/dL (6.4-8.2)
[2023-01-02 07:14] LABS: Potassium 2.7 mmol/L (3.5-5.1)
[2023-01-02] MEDS ORDERED: POTASSIUM CHL 20 Meq TABLET PO ONE (09:00)
[2023-01-02] MEDS: THIAMINE HCL 100 MG TAB PO SCH (10:00)
[2023-01-02] MEDS: FOLIC ACID 1 MG TAB PO SCH (10:00)
[2023-01-02] MEDS: CARVEDILOL 3.125 MG TAB PO SCH ×2 (10:00→21:42)
[2023-01-02] MEDS: ASPirin 81 mg TAB PO SCH (10:00)
[2023-01-02] MEDS: FUROSEMIDE 40 MG/4 ML VIAL IV SCH (10:29)
[2023-01-02] MEDS: FAMOTIDINE (10MG/ML) 2ML VL IV SCH ×2 (10:29→21:42)
[2023-01-02] MEDS: POTASSIUM CHL 20MEQ/100ML 100 ML IV SCH ×4 (11:34→15:00)
[2023-01-02] MEDS: FOLIC ACID 1 MG, MULTIPLE VITAMIN 10 ML, MAGNESIUM SULF SDV 50% 8 MEQ, THIAMINE INJ 100... INJ SCH ×5 (13:55)
[2023-01-02] MEDS: ATORVASTATIN 20 MG TAB PO SCH (21:42)
[2023-01-03] VITALS (96 sets, daily range): BP systolic 68–143; BP diastolic 38–84
[2023-01-03] MEDS ORDERED: PHENYLEPHRINE INJ 80 MG in SODIUM CHL 0.9% 242 ML IV SCH (01:15)
[2023-01-03] MEDS ORDERED: PHENYLEPHRINE IV 0 ML IV ONE (01:15)
[2023-01-03] MEDS ORDERED: PHENYLEPHRINE HCL 10 MG/ML VL ONE (01:15)
[2023-01-03] MEDS ORDERED: ACETAMINOPHEN 650 MG RECT SUPP PR PRN (01:15)
[2023-01-03] MEDS: NOREPINEPHRINE 8 MG/250ML KIT 250 ML IV SCH (02:34)
[2023-01-03 05:08] LABS: Albumin 1.6 g/dL (3.4-5.0); Calcium 7.8 mg/dL (8.5-10.1); Potassium 3.4 mmol/L (3.5-5.1)
[2023-01-03 05:15] LABS: BUN/Creatinine Ratio 25.1 (10.0-20.0); Bilirubin, Total 0.9 mg/dL (0.2-1.0)
[2023-01-03] MEDS: SODIUM CHLOR 0.9% PF (SALINE LOCK) 10ML VIAL/SYR IV SCH ×3 (05:58→21:48)
[2023-01-03] MEDS: GABAPENTIN 400 MG CAP PO SCH ×3 (06:00→21:49)
[2023-01-03] MEDS: MIDODRINE HCL 10 MG TAB PO SCH ×3 (06:00→18:00)
[2023-01-03] MEDS: FUROSEMIDE 40 MG/4 ML VIAL IV SCH (09:58)
[2023-01-03] MEDS: ASPirin 81 mg TAB PO SCH (09:58)
[2023-01-03] MEDS: CARVEDILOL 3.125 MG TAB PO SCH ×2 (09:58→21:48)
[2023-01-03] MEDS: FAMOTIDINE (10MG/ML) 2ML VL IV SCH ×2 (09:58→21:48)
[2023-01-03] MEDS ORDERED: DAPTOMYCIN IV SCH (10:00)
[2023-01-03] MEDS: DAPTOmycin 500 MG in SODIUM CHL 0.9% 50 ML IV SCH (13:17)
[2023-01-03] MEDS: FOLIC ACID 1 MG, MULTIPLE VITAMIN 10 ML, MAGNESIUM SULF SDV 50% 8 MEQ, THIAMINE INJ 100... INJ SCH ×5 (13:17)
[2023-01-03] MEDS: POTASSIUM CHL 20 Meq TABLET PO SCH (14:30)
[2023-01-03] MEDS ORDERED: SODIUM CHLORIDE 0.9% 1,000 ML IV ONE (15:00)
[2023-01-03] MEDS: POTASSIUM CHL 20MEQ/100ML 100 ML IV SCH ×2 (15:19→18:07)
[2023-01-03] MEDS: PHENYLEPHRINE IV 250 ML IV SCH (15:20)
[2023-01-03] MEDS ORDERED: SODIUM BICARBONATE 8.4 % INJ 50ML VIAL IV ONE (18:00)
[2023-01-03] MEDS: ATORVASTATIN 20 MG TAB PO SCH (21:48)
[2023-01-04] VITALS (80 sets, daily range): BP systolic 83–135; BP diastolic 44–82
[2023-01-04] MEDS: PHENYLEPHRINE IV 250 ML IV SCH ×3 (00:49→16:15)
[2023-01-04 04:16] LABS: Albumin 1.6 g/dL (3.4-5.0); Calcium 7.8 mg/dL (8.5-10.1); Potassium 3.5 mmol/L (3.5-5.1)
[2023-01-04 04:19] LABS: BUN/Creatinine Ratio 29.3 (10.0-20.0); Bilirubin, Total 0.8 mg/dL (0.2-1.0); Total Protein 5.1 g/dL (6.4-8.2)
[2023-01-04] MEDS: GABAPENTIN 400 MG CAP PO SCH ×3 (05:52→21:52)
[2023-01-04] MEDS: MIDODRINE HCL 10 MG TAB PO SCH ×3 (05:52→16:57)
[2023-01-04] MEDS: SODIUM CHLOR 0.9% PF (SALINE LOCK) 10ML VIAL/SYR IV SCH ×3 (05:53→21:51)
[2023-01-04] MEDS: NOREPINEPHRINE 8 MG/250ML KIT 250 ML IV SCH (08:06)
[2023-01-04] MEDS: ASPirin 81 mg TAB PO SCH (08:49)
[2023-01-04] MEDS: CARVEDILOL 3.125 MG TAB PO SCH ×2 (08:50→21:51)
[2023-01-04] MEDS: POTASSIUM CHL 20 Meq TABLET PO SCH (08:50)
[2023-01-04] MEDS: FUROSEMIDE 40 MG/4 ML VIAL IV SCH (09:09)
[2023-01-04] MEDS: FAMOTIDINE (10MG/ML) 2ML VL IV SCH ×2 (09:09→21:51)
[2023-01-04] MEDS: FOLIC ACID 1 MG, MULTIPLE VITAMIN 10 ML, MAGNESIUM SULF SDV 50% 8 MEQ, THIAMINE INJ 100... INJ SCH ×5 (12:41)
[2023-01-04] MEDS: ATORVASTATIN 20 MG TAB PO SCH (21:51)
[2023-01-05] VITALS (56 sets, daily range): BP systolic 87–138; BP diastolic 45–85
[2023-01-05 04:28] LABS: Basophils # (auto) 0 10 ^3/uL (0-0.2); Eosinophils # (auto) 0 10 ^3/uL (0-0.8); Eosinophils % (auto) 0.1 % (0.0-7.0); Monocytes # (auto) 0.6 10 ^3/uL (0-1.3); Red Cell Distribution Width 14.7 % (11.8-14.3)
[2023-01-05 04:32] LABS: Basophils % (auto) 0.1 % (0.0-2.0); Hematocrit 29.2 % (41.0-53.0); Lymphocytes # (auto) 0.4 10 ^3/uL (0.4-5.4); Lymphocytes % (auto) 2.9 % (10.0-50.0); Mean Corpuscular Hemoglobin 31.4 pg (28.0-32.0); Mean Corpuscular Hgb Conc. 34.4 g/dL (32.0-36.0); Mean Corpuscular Volume 91.4 fL (80.0-100.0); Monocytes % (auto) 4.1 % (0.0-12.0); Neutrophils # (auto) 12.7 10 ^3/uL (1.6-8.6); Neutrophils % (auto) 92.8 % (37.0-80.0); Red Blood Cells 3.19 10^6/uL (4.5-5.90); White Blood Cell 13.7 10^3/uL (4.4-10.8)
[2023-01-05 04:53] LABS: Albumin 1.6 g/dL (3.4-5.0); BUN/Creatinine Ratio 38.1 (10.0-20.0); Bilirubin, Total 1.4 mg/dL (0.2-1.0); Calcium 8.1 mg/dL (8.5-10.1); Total Protein 5.4 g/dL (6.4-8.2)
[2023-01-05 05:03] LABS: Potassium 2.7 mmol/L (3.5-5.1)
[2023-01-05] MEDS: SODIUM CHLOR 0.9% PF (SALINE LOCK) 10ML VIAL/SYR IV SCH ×3 (05:39→22:08)
[2023-01-05] MEDS: POTASSIUM CHL 20MEQ/100ML 100 ML IV SCH ×5 (05:39→22:45)
[2023-01-05] MEDS: MIDODRINE HCL 10 MG TAB PO SCH ×3 (05:40→18:00)
[2023-01-05] MEDS: GABAPENTIN 400 MG CAP PO SCH ×3 (05:40→21:55)
[2023-01-05] MEDS: FAMOTIDINE (10MG/ML) 2ML VL IV SCH ×2 (09:20→22:08)
[2023-01-05] MEDS: FUROSEMIDE 40 MG/4 ML VIAL IV SCH (09:20)
[2023-01-05] MEDS: DAPTOmycin 500 MG in SODIUM CHL 0.9% 50 ML IV SCH (09:20)
[2023-01-05] MEDS: ASPirin 81 mg TAB PO SCH (09:24)
[2023-01-05] MEDS: CARVEDILOL 3.125 MG TAB PO SCH ×2 (09:25→21:55)
[2023-01-05] MEDS: POTASSIUM CHL 20 Meq TABLET PO SCH (09:25)
[2023-01-05] MEDS ORDERED: PIPERACILLIN-TAZOB 3.375GM 100 ML IV SCH (10:00)
[2023-01-05] MEDS: PHENYLEPHRINE IV 250 ML IV SCH ×2 (11:19→17:15)
[2023-01-05] MEDS: NOREPINEPHRINE 8 MG/250ML KIT 250 ML IV SCH (11:19)
[2023-01-05] MEDS: FOLIC ACID 1 MG, MULTIPLE VITAMIN 10 ML, MAGNESIUM SULF SDV 50% 8 MEQ, THIAMINE INJ 100... INJ SCH ×5 (12:16)
[2023-01-05] MEDS: D5W 5% 1,000 ML IV SCH ×2 (12:17→22:08)
[2023-01-05] MEDS ORDERED: AZTREONAM 1GM INJ 1 GM in D5W 5% 50 ML IV SCH (14:00)
[2023-01-05] MEDS: SPIRONOLACTONE 25 MG TAB PO SCH (16:00)
[2023-01-05] MEDS ORDERED: DAPTOmycin 250 MG in SODIUM CHL 0.9% 50 ML IV ONE (16:00)
[2023-01-05] MEDS: ATORVASTATIN 20 MG TAB PO SCH (21:55)
[2023-01-06] VITALS (86 sets, daily range): BP systolic 89–149; BP diastolic 43–92
[2023-01-06] MEDS: POTASSIUM CHL 20MEQ/100ML 100 ML IV SCH ×3 (00:30→22:30)
[2023-01-06] MEDS: PHENYLEPHRINE IV 250 ML IV SCH ×3 (01:35→19:30)
[2023-01-06] MEDS: NOREPINEPHRINE 8 MG/250ML KIT 250 ML IV SCH (04:00)
[2023-01-06 04:18] LABS: Eosinophils # (auto) 0 10 ^3/uL (0-0.8); Lymphocytes # (auto) 0.7 10 ^3/uL (0.4-5.4); Red Cell Distribution Width 15.4 % (11.8-14.3)
[2023-01-06 04:19] LABS: Basophils # (auto) 0 10 ^3/uL (0-0.2); Basophils % (auto) 0.2 % (0.0-2.0); Eosinophils % (auto) 0.2 % (0.0-7.0); Hematocrit 26.6 % (41.0-53.0); Hemoglobin 9.1 g/dL (13.5-17.5); Lymphocytes % (auto) 5.5 % (10.0-50.0); Mean Corpuscular Hemoglobin 31.4 pg (28.0-32.0); Mean Corpuscular Hgb Conc. 34.4 g/dL (32.0-36.0); Mean Corpuscular Volume 91.3 fL (80.0-100.0); Monocytes # (auto) 0.4 10 ^3/uL (0-1.3); Monocytes % (auto) 2.8 % (0.0-12.0); Neutrophils # (auto) 11.4 10 ^3/uL (1.6-8.6); Neutrophils % (auto) 91.3 % (37.0-80.0); Nucleated Red Blood Cells % 0.1 %; Red Blood Cells 2.91 10^6/uL (4.5-5.90); White Blood Cell 12.5 10^3/uL (4.4-10.8)
[2023-01-06 04:26] LABS: Albumin 1.5 g/dL (3.4-5.0); BUN/Creatinine Ratio 37.8 (10.0-20.0); Potassium 3.1 mmol/L (3.5-5.1)
[2023-01-06 04:41] LABS: Total Protein 5.4 g/dL (6.4-8.2)
[2023-01-06] MEDS: SODIUM CHLOR 0.9% PF (SALINE LOCK) 10ML VIAL/SYR IV SCH ×3 (06:00→21:53)
[2023-01-06] MEDS: GABAPENTIN 400 MG CAP PO SCH ×3 (06:00→21:41)
[2023-01-06] MEDS: MIDODRINE HCL 10 MG TAB PO SCH ×3 (06:00→17:01)
[2023-01-06] MEDS: ALBUTEROL SULF 2.5 MG/0.5ML(0.5%) NEB SOLN NEB SCH ×7 (09:00→22:05)
[2023-01-06] MEDS: FAMOTIDINE (10MG/ML) 2ML VL IV SCH ×2 (09:05→21:53)
[2023-01-06] MEDS: ASPirin 81 mg TAB PO SCH (09:05)
[2023-01-06] MEDS: FUROSEMIDE 20 MG/2 ML VIAL IV SCH (09:05)
[2023-01-06] MEDS: D5W 5% 1,000 ML IV SCH ×2 (09:05→17:01)
[2023-01-06] MEDS: CARVEDILOL 3.125 MG TAB PO SCH ×2 (09:06→21:41)
[2023-01-06] MEDS: SPIRONOLACTONE 25 MG TAB PO SCH (09:06)
[2023-01-06] MEDS: POTASSIUM CHL 20 Meq TABLET PO SCH (09:06)
[2023-01-06 09:12] LABS: INR 1.13 (0.9-1.15); Partial Thromboplastin Time 27.6 sec (24.6-33.4)
[2023-01-06] MEDS: IPRATROPIUM BROM 0.5 MG/2.5ML INH SOL NEB SCH ×6 (10:00→22:05)
[2023-01-06] MEDS: DAPTOmycin 750 MG in SODIUM CHL 0.9% 50 ML IV SCH (11:46)
[2023-01-06] MEDS: methylPREDNISolone SOD SUCC 40 MG/ML VL IV SCH ×2 (11:49→21:53)
[2023-01-06] MEDS: ACETYLCYSTEINE 10 %(100MG/ML) SOL 4ML NEB SCH ×2 (13:57→22:05)
[2023-01-06] MEDS ORDERED: ACETYLCYSTEINE 20%(200MG/ML) SOL 4ML NEB SCH (14:00)
[2023-01-06] MEDS: FOLIC ACID 1 MG, MULTIPLE VITAMIN 10 ML, MAGNESIUM SULF SDV 50% 8 MEQ, THIAMINE INJ 100... INJ SCH ×5 (15:40)
[2023-01-06 16:55] LABS: Albumin 1.5 g/dL (3.4-5.0); Calcium 8.2 mg/dL (8.5-10.1); Potassium 3.2 mmol/L (3.5-5.1)
[2023-01-06 16:59] LABS: BUN/Creatinine Ratio 35.5 (10.0-20.0); Total Protein 5.7 g/dL (6.4-8.2)
[2023-01-06 20:43] LABS: Basophils # (auto) 0 10 ^3/uL (0-0.2); Eosinophils # (auto) 0 10 ^3/uL (0-0.8); Hemoglobin 9.1 g/dL (13.5-17.5); Monocytes # (auto) 0.2 10 ^3/uL (0-1.3); Nucleated Red Blood Cells % 0.1 %; Red Cell Distribution Width 15.3 % (11.8-14.3)
[2023-01-06 20:45] LABS: Basophils % (auto) 0.1 % (0.0-2.0); Hematocrit 26.4 % (41.0-53.0); Lymphocytes # (auto) 0.6 10 ^3/uL (0.4-5.4); Lymphocytes % (auto) 5.9 % (10.0-50.0); Mean Corpuscular Hemoglobin 31.1 pg (28.0-32.0); Mean Corpuscular Hgb Conc. 34.4 g/dL (32.0-36.0); Mean Corpuscular Volume 90.4 fL (80.0-100.0); Neutrophils # (auto) 8.8 10 ^3/uL (1.6-8.6); Red Blood Cells 2.92 10^6/uL (4.5-5.90); White Blood Cell 9.5 10^3/uL (4.4-10.8)
[2023-01-06 21:11] LABS: INR 1.15 (0.9-1.15)
[2023-01-06] MEDS: ATORVASTATIN 20 MG TAB PO SCH (21:41)
[2023-01-06] MEDS: BUDESONIDE (INHALATION) 0.5 MG/2 ML NEB NEB SCH (22:05)
[2023-01-07] VITALS (69 sets, daily range): BP systolic 93–142; BP diastolic 44–90
[2023-01-07] MEDS: IPRATROPIUM BROM 0.5 MG/2.5ML INH SOL NEB SCH ×6 (02:18→22:23)
[2023-01-07] MEDS: ALBUTEROL SULF 2.5 MG/0.5ML(0.5%) NEB SOLN NEB SCH ×6 (02:18→22:23)
[2023-01-07] MEDS: PHENYLEPHRINE IV 250 ML IV SCH ×3 (02:35→16:42)
[2023-01-07 03:36] LABS: Basophils # (auto) 0 10 ^3/uL (0-0.2); Eosinophils # (auto) 0 10 ^3/uL (0-0.8); Monocytes # (auto) 0.3 10 ^3/uL (0-1.3); Neutrophils % (auto) 93.1 % (37.0-80.0)
[2023-01-07 03:40] LABS: Hematocrit 25.1 % (41.0-53.0); Hemoglobin 8.8 g/dL (13.5-17.5); Lymphocytes # (auto) 0.6 10 ^3/uL (0.4-5.4); Lymphocytes % (auto) 4.7 % (10.0-50.0); Mean Corpuscular Hemoglobin 32.2 pg (28.0-32.0); Mean Corpuscular Hgb Conc. 35.1 g/dL (32.0-36.0); Mean Corpuscular Volume 91.8 fL (80.0-100.0); Monocytes % (auto) 2.2 % (0.0-12.0); Neutrophils # (auto) 11.1 10 ^3/uL (1.6-8.6); Red Blood Cells 2.74 10^6/uL (4.5-5.90); Red Cell Distribution Width 15.1 % (11.8-14.3); White Blood Cell 11.9 10^3/uL (4.4-10.8)
[2023-01-07] MEDS: NOREPINEPHRINE 8 MG/250ML KIT 250 ML IV SCH (03:42)
[2023-01-07] MEDS: D5W 5% 1,000 ML IV SCH ×3 (03:44→23:45)
[2023-01-07 03:57] LABS: Potassium 3.4 mmol/L (3.5-5.1)
[2023-01-07 04:05] LABS: Albumin 1.5 g/dL (3.4-5.0); BUN/Creatinine Ratio 40.3 (10.0-20.0); Bilirubin, Total 0.8 mg/dL (0.2-1.0); Calcium 7.7 mg/dL (8.5-10.1); Total Protein 5.5 g/dL (6.4-8.2)
[2023-01-07] MEDS: MIDODRINE HCL 10 MG TAB PO SCH ×3 (05:43→16:42)
[2023-01-07] MEDS: SODIUM CHLOR 0.9% PF (SALINE LOCK) 10ML VIAL/SYR IV SCH ×3 (05:43→23:49)
[2023-01-07] MEDS: GABAPENTIN 400 MG CAP PO SCH ×3 (05:43→22:00)
[2023-01-07] MEDS: ACETYLCYSTEINE 10 %(100MG/ML) SOL 4ML NEB SCH ×2 (06:37→22:23)
[2023-01-07] MEDS: BUDESONIDE (INHALATION) 0.5 MG/2 ML NEB NEB SCH ×2 (06:38→22:23)
[2023-01-07] MEDS: CARVEDILOL 3.125 MG TAB PO SCH ×2 (09:12→22:00)
[2023-01-07] MEDS: ASPirin 81 mg TAB PO SCH (09:12)
[2023-01-07] MEDS: SPIRONOLACTONE 25 MG TAB PO SCH (09:12)
[2023-01-07] MEDS: POTASSIUM CHL 20 Meq TABLET PO SCH (09:13)
[2023-01-07] MEDS: FUROSEMIDE 20 MG/2 ML VIAL IV SCH (09:31)
[2023-01-07] MEDS: methylPREDNISolone SOD SUCC 40 MG/ML VL IV SCH ×2 (09:31→23:45)
[2023-01-07] MEDS: FAMOTIDINE (10MG/ML) 2ML VL IV SCH ×2 (09:35→23:46)
[2023-01-07] MEDS: DAPTOmycin 750 MG in SODIUM CHL 0.9% 50 ML IV SCH (12:10)
[2023-01-07] MEDS ORDERED: methylPREDNISolone SOD SUCC 40 MG/ML VL IM ONE (12:15)
[2023-01-07] MEDS ORDERED: EPINEPHrine HCL 0.5 ML NEB NEB ONE (12:15)
[2023-01-07] MEDS ORDERED: FUROSEMIDE 20 MG/2 ML VIAL IV ONE (12:45)
[2023-01-07] MEDS: SOD CHL 0.45% 1,000 ML IV SCH ×2 (13:48→19:45)
[2023-01-07] MEDS: THIAMINE 100mg/ml INJ (200mg/2ml VIAL) IV SCH (13:55)
[2023-01-07] MEDS ORDERED: HEPARIN DRIP/D5W 100UNITS/ML 250 ML IV SCH (15:15)
[2023-01-07] MEDS ORDERED: HEPARIN SODIUM (PORCINE) 5000 UNITS/ML 1ML VIAL IV ONE (15:15)
[2023-01-07] MEDS: FOLIC ACID 1 MG in D5W 5% 50 ML INJ SCH (16:11)
[2023-01-07] MEDS ORDERED: WARFARIN SODIUM 5 MG TAB PO SCH (17:00)
[2023-01-07] MEDS ORDERED: methylPREDNISolone SOD SUCC 40 MG/ML VL IV SCH (22:00)
[2023-01-07] MEDS: ATORVASTATIN 20 MG TAB PO SCH (22:00)
[2023-01-08] MEDS: IPRATROPIUM BROM 0.5 MG/2.5ML INH SOL NEB SCH ×6 (02:10→23:07)
[2023-01-08] MEDS: ALBUTEROL SULF 2.5 MG/0.5ML(0.5%) NEB SOLN NEB SCH ×6 (02:10→23:07)
[2023-01-08] MEDS: GABAPENTIN 400 MG CAP PO SCH ×3 (05:55→22:00)
[2023-01-08] MEDS: MIDODRINE HCL 10 MG TAB PO SCH ×3 (05:55→18:00)
[2023-01-08] MEDS: ACETYLCYSTEINE 10 %(100MG/ML) SOL 4ML NEB SCH ×3 (06:00→23:07)
[2023-01-08] MEDS: BUDESONIDE (INHALATION) 0.5 MG/2 ML NEB NEB SCH ×2 (06:00→23:07)
[2023-01-08 06:30] LABS: Albumin 1.5 g/dL (3.4-5.0); Calcium 7.4 mg/dL (8.5-10.1); Magnesium 2.1 mg/dL (1.6-2.6); Potassium 3.3 mmol/L (3.5-5.1)
[2023-01-08 06:35] LABS: BUN/Creatinine Ratio 39.1 (10.0-20.0); Bilirubin, Total 0.6 mg/dL (0.2-1.0)
[2023-01-08] MEDS: SODIUM CHLOR 0.9% PF (SALINE LOCK) 10ML VIAL/SYR IV SCH ×3 (06:35→22:03)
[2023-01-08] MEDS: D5W 5% 1,000 ML IV SCH ×2 (06:35→19:45)
[2023-01-08] MEDS: SOD CHL 0.45% 1,000 ML IV SCH ×2 (06:35→15:45)
[2023-01-08 06:42] LABS: Albumin 1.5 g/dL (3.4-5.0); Bilirubin, Direct 0.2 mg/dL (0-0.2); Bilirubin, Total 0.6 mg/dL (0.2-1.0); Total Protein 5.1 g/dL (6.4-8.2)
[2023-01-08 07:05] LABS: Basophils # (auto) 0 10 ^3/uL (0-0.2); Eosinophils # (auto) 0 10 ^3/uL (0-0.8); Hematocrit 20.6 % (41.0-53.0); Lymphocytes # (auto) 0.3 10 ^3/uL (0.4-5.4); Monocytes # (auto) 0.3 10 ^3/uL (0-1.3)
[2023-01-08 07:07] LABS: Basophils % (auto) 0.1 % (0.0-2.0); Hemoglobin 7.3 g/dL (13.5-17.5); Lymphocytes % (auto) 2.6 % (10.0-50.0); Mean Corpuscular Hemoglobin 32.4 pg (28.0-32.0); Mean Corpuscular Hgb Conc. 35.2 g/dL (32.0-36.0); Mean Corpuscular Volume 92.1 fL (80.0-100.0); Monocytes % (auto) 3.1 % (0.0-12.0); Neutrophils # (auto) 9.7 10 ^3/uL (1.6-8.6); Neutrophils % (auto) 94.2 % (37.0-80.0); Red Blood Cells 2.24 10^6/uL (4.5-5.90); White Blood Cell 10.3 10^3/uL (4.4-10.8)
[2023-01-08 08:56] VITALS: BP 106/58
[2023-01-08] MEDS: SPIRONOLACTONE 25 MG TAB PO SCH (10:00)
[2023-01-08] MEDS: CARVEDILOL 3.125 MG TAB PO SCH ×2 (10:00→22:00)
[2023-01-08] MEDS: ASPirin 81 mg TAB PO SCH (10:00)
[2023-01-08] MEDS: POTASSIUM CHL 20 Meq TABLET PO SCH (10:00)
[2023-01-08] MEDS: THIAMINE 100mg/ml INJ (200mg/2ml VIAL) IV SCH (10:16)
[2023-01-08] MEDS: FUROSEMIDE 40 MG/4 ML VIAL IV SCH (10:17)
[2023-01-08] MEDS: methylPREDNISolone SOD SUCC 40 MG/ML VL IV SCH ×2 (10:17→22:03)
[2023-01-08] MEDS: FAMOTIDINE (10MG/ML) 2ML VL IV SCH ×2 (10:17→22:03)
[2023-01-08] MEDS: FOLIC ACID 1 MG in D5W 5% 50 ML INJ SCH (11:05)
[2023-01-08] MEDS: DAPTOmycin 750 MG in SODIUM CHL 0.9% 50 ML IV SCH (11:48)
[2023-01-08 13:00] VITALS: BP 142/73
[2023-01-08 17:00] VITALS: BP 140/72
[2023-01-08] MEDS: ATORVASTATIN 20 MG TAB PO SCH (22:00)
[2023-01-08 22:12] VITALS: BP 120/57
[2023-01-09] VITALS (18 sets, daily range): BP systolic 108–143; BP diastolic 62–79
[2023-01-09] MEDS: SOD CHL 0.45% 1,000 ML IV SCH (00:31)
[2023-01-09] MEDS: D5W 5% 1,000 ML IV SCH ×2 (00:32→18:59)
[2023-01-09 01:38] LABS: BUN/Creatinine Ratio 41.5 (10.0-20.0); Calcium 7.4 mg/dL (8.5-10.1); Potassium 3.3 mmol/L (3.5-5.1)
[2023-01-09 01:41] LABS: Basophils # (auto) 0 10 ^3/uL (0-0.2); Eosinophils # (auto) 0 10 ^3/uL (0-0.8); Lymphocytes # (auto) 0.3 10 ^3/uL (0.4-5.4); Monocytes # (auto) 0.2 10 ^3/uL (0-1.3); Monocytes % (auto) 2.2 % (0.0-12.0); Red Cell Distribution Width 15.8 % (11.8-14.3)
[2023-01-09 01:43] LABS: Basophils % (auto) 0.2 % (0.0-2.0); Hematocrit 21.7 % (41.0-53.0); Mean Corpuscular Hemoglobin 31.5 pg (28.0-32.0); Mean Corpuscular Hgb Conc. 32.3 g/dL (32.0-36.0); Mean Corpuscular Volume 97.3 fL (80.0-100.0); Neutrophils # (auto) 10.6 10 ^3/uL (1.6-8.6); Neutrophils % (auto) 94.6 % (37.0-80.0); Red Blood Cells 2.24 10^6/uL (4.5-5.90); White Blood Cell 11.2 10^3/uL (4.4-10.8)
[2023-01-09] MEDS: ALBUTEROL SULF 2.5 MG/0.5ML(0.5%) NEB SOLN NEB SCH ×6 (02:00→22:31)
[2023-01-09] MEDS: IPRATROPIUM BROM 0.5 MG/2.5ML INH SOL NEB SCH ×6 (02:00→22:31)
[2023-01-09] MEDS: GABAPENTIN 400 MG CAP PO SCH ×3 (06:00→21:32)
[2023-01-09] MEDS: MIDODRINE HCL 10 MG TAB PO SCH ×3 (06:00→17:59)
[2023-01-09] MEDS: SODIUM CHLOR 0.9% PF (SALINE LOCK) 10ML VIAL/SYR IV SCH ×3 (06:17→21:31)
[2023-01-09] MEDS: ACETYLCYSTEINE 10 %(100MG/ML) SOL 4ML NEB SCH ×2 (06:29→10:31)
[2023-01-09] MEDS: BUDESONIDE (INHALATION) 0.5 MG/2 ML NEB NEB SCH ×2 (06:30→18:33)
[2023-01-09] MEDS: FOLIC ACID 1 MG in D5W 5% 50 ML INJ SCH (10:32)
[2023-01-09] MEDS: methylPREDNISolone SOD SUCC 40 MG/ML VL IV SCH ×2 (10:32→21:31)
[2023-01-09] MEDS: DAPTOmycin 750 MG in SODIUM CHL 0.9% 50 ML IV SCH (10:32)
[2023-01-09] MEDS: THIAMINE 100mg/ml INJ (200mg/2ml VIAL) IV SCH (10:33)
[2023-01-09] MEDS: ASPirin 81 mg TAB PO SCH (10:34)
[2023-01-09] MEDS: SPIRONOLACTONE 25 MG TAB PO SCH (10:34)
[2023-01-09] MEDS: CARVEDILOL 3.125 MG TAB PO SCH ×2 (10:34→21:31)
[2023-01-09] MEDS: FUROSEMIDE 40 MG/4 ML VIAL IV SCH (10:34)
[2023-01-09] MEDS: FAMOTIDINE (10MG/ML) 2ML VL IV SCH ×2 (10:34→21:31)
[2023-01-09] MEDS: POTASSIUM CHL 20 Meq TABLET PO SCH (10:35)
[2023-01-09] MEDS: POTASSIUM CHL 20MEQ/100ML 100 ML IV SCH ×3 (12:48→16:49)
[2023-01-09] MEDS: ATORVASTATIN 20 MG TAB PO SCH (21:32)
[2023-01-10] VITALS (8 sets, daily range): BP systolic 122–147; BP diastolic 67–89
[2023-01-10] MEDS: IPRATROPIUM BROM 0.5 MG/2.5ML INH SOL NEB SCH ×5 (02:30→18:12)
[2023-01-10] MEDS: ALBUTEROL SULF 2.5 MG/0.5ML(0.5%) NEB SOLN NEB SCH ×5 (02:30→18:12)
[2023-01-10] MEDS: D5W 5% 1,000 ML IV SCH ×3 (05:42→16:19)
[2023-01-10] MEDS: SODIUM CHLOR 0.9% PF (SALINE LOCK) 10ML VIAL/SYR IV SCH ×2 (05:42→14:00)
[2023-01-10] MEDS: GABAPENTIN 400 MG CAP PO SCH ×2 (05:42→16:17)
[2023-01-10] MEDS: MIDODRINE HCL 10 MG TAB PO SCH ×3 (05:43→19:51)
[2023-01-10 07:08] LABS: Hemoglobin 8.9 g/dL (13.5-17.5); Mean Corpuscular Hgb Conc. 35.1 g/dL (32.0-36.0); Red Cell Distribution Width 15.1 % (11.8-14.3)
[2023-01-10 07:13] LABS: Hematocrit 25.4 % (41.0-53.0); Mean Corpuscular Hemoglobin 31.6 pg (28.0-32.0); Mean Corpuscular Volume 89.9 fL (80.0-100.0); Red Blood Cells 2.83 10^6/uL (4.5-5.90)
[2023-01-10 07:15] LABS: Basophils % (manual) 0 (0.0-2.0); Blast Cells 0; Eosinophils % (manual) 0 (0-7); Metamyelocytes % 0; Myelocytes % 0; Promyelocytes % 0; Reactive Lymphocytes 0
[2023-01-10 07:23] LABS: Potassium 3.5 mmol/L (3.5-5.1)
[2023-01-10 07:34] LABS: BUN/Creatinine Ratio 47.3 (10.0-20.0); Calcium 7.5 mg/dL (8.5-10.1)
[2023-01-10 08:28] LABS: Band Neutrophils % (manual) 6; Lymphocytes % (manual) 3 (10.0-50.0); Monocytes % (manual) 2 (0-12)
[2023-01-10] MEDS: FOLIC ACID 1 MG in D5W 5% 50 ML INJ SCH (09:19)
[2023-01-10] MEDS: DAPTOmycin 750 MG in SODIUM CHL 0.9% 50 ML IV SCH (09:20)
[2023-01-10] MEDS: BUDESONIDE (INHALATION) 0.5 MG/2 ML NEB NEB SCH ×2 (10:15→18:12)
[2023-01-10] MEDS ORDERED: methylPREDNISolone SOD SUCC 125 MG/2 ML VL IV SCH (10:34)
[2023-01-10] MEDS: SPIRONOLACTONE 25 MG TAB PO SCH (10:35)
[2023-01-10] MEDS: CARVEDILOL 3.125 MG TAB PO SCH (10:35)
[2023-01-10] MEDS: ASPirin 81 mg TAB PO SCH (10:36)
[2023-01-10] MEDS: THIAMINE 100mg/ml INJ (200mg/2ml VIAL) IV SCH (10:38)
[2023-01-10] MEDS: FAMOTIDINE (10MG/ML) 2ML VL IV SCH (10:38)
[2023-01-10] MEDS: FUROSEMIDE 40 MG/4 ML VIAL IV SCH (10:38)
[2023-01-10] MEDS ORDERED: POTASSIUM EFFERVESENT TAB 25 MEQ PO SCH (12:07)
== END 2023-01-10 20:19 | disposition short-term general hospital (02) | DRG 871 ==
LOC: ER 01:02 → TELE 06:42 → ICU WEST 08:55 → TELE-WESTW 01-07 18:18
PROVIDERS: ADMIT Nurse Practitioner Family; ATTEND Internal Medicine
PROC: 4A00X4Z Measurement of Central Nervous Electrical Activity, External Approach (ICD-10-PCS; principal; 2022-12-31)
PROC: 30233R1 Transfusion of Nonautologous Platelets into Peripheral Vein, Percutaneous Approach (ICD-10-PCS; 2022-12-31)
PROC: 05HA33Z Insertion of Infusion Device into Left Brachial Vein, Percutaneous Approach (ICD-10-PCS; 2023-01-06)
PROC: B54NZZA Ultrasonography of Left Upper Extremity Veins, Guidance (ICD-10-PCS; 2023-01-06)
PROC: 0JPW3XZ Removal of Tunneled Vascular Access Device from Lower Extremity Subcutaneous Tissue and Fascia, Percutaneous Approach (ICD-10-PCS; 2023-01-06)
PROC: 06PYX3Z Removal of Infusion Device from Lower Vein, External Approach (ICD-10-PCS; 2023-01-06)
PROC: 30233N1 Transfusion of Nonautologous Red Blood Cells into Peripheral Vein, Percutaneous Approach (ICD-10-PCS; 2023-01-09)
DX: A41.01 Sepsis due to Methicillin susceptible Staphylococcus aureus (principal); G92.8 Other toxic encephalopathy; I50.23 Acute on chronic systolic (congestive) heart failure; J96.00 Acute respiratory failure, unspecified whether with hypoxia or hypercapnia; R57.0 Cardiogenic shock; R65.21 Severe sepsis with septic shock; I21.4 Non-ST elevation (NSTEMI) myocardial infarction; E87.0 Hyperosmolality and hypernatremia; N17.9 Acute kidney failure, unspecified; E87.1 Hypo-osmolality and hyponatremia; E87.20 Acidosis, unspecified; I13.0 Hypertensive heart and chronic kidney disease with heart failure and stage 1 through stage 4 chronic kidney disease, or unspecified chronic kidney disease; F10.139 Alcohol abuse with withdrawal, unspecified; I42.9 Cardiomyopathy, unspecified; I47.1 Supraventricular tachycardia; I82.402 Acute embolism and thrombosis of unspecified deep veins of left lower extremity; I38 Endocarditis, valve unspecified; K56.7 Ileus, unspecified; Y90.9 Presence of alcohol in blood, level not specified; E80.6 Other disorders of bilirubin metabolism; D64.9 Anemia, unspecified; E78.5 Hyperlipidemia, unspecified; D69.6 Thrombocytopenia, unspecified; E87.6 Hypokalemia; K70.9 Alcoholic liver disease, unspecified; R80.9 Proteinuria, unspecified; E78.00 Pure hypercholesterolemia, unspecified; N20.0 Calculus of kidney; N18.9 Chronic kidney disease, unspecified; Z88.0 Allergy status to penicillin; Z79.899 Other long term (current) drug therapy
CPT/HCPCS: 36415; 36430; 36600; 70450; 71045; 74176; 76700; 78582; 80048; 80053; 80076; 80202; 80307; 81001; 82140; 82270; 82570; 82607; 82728; 82805; 83036; 83540; 83550; 83605; 83615; 83690; 83735; 83880; 84100; 84132; 84156; 84300; 84484; 85007; 85025; 85027; 85045; 85379; 85384; 85610; 85730; 86038; 86147; 86850; 86880; 86900; 86901; 86920; 87040; 87045; 87077; 87081; 87147; 87186; 87427; 93005; 93306; 93970; 94640; 95819; 96361; 96372; 96374; 96375; G0378; J0131; J3480; J3490; J7060